=== PATIENT | male | born 1960 | race African-American/Black ===

== ENCOUNTER 2020-01-24 15:51 | Inpatient (IN) | payer OTHER ==
[~2020-01-24] VITALS: Ht 180.3 cm; Wt 90.0 kg
--- NOTE | 2020-01-24 15:55 | NUR ---
PATIENT TO ROOM VIA WHEELCHAIR UNDER GUARD AND PHYSICIAN NOTIFIED OF PATIENT STATUS
--- NOTE | 2020-01-24 16:44 | NUR ---
EKG COMPLETED ABG DONE AND O2 APPLIED LAB AND BC OBTAINED, PT TOLERATED WELL ISOLATION PRECAUTIONS IN PLACE, GUARDS AT BEDSIDE WILL CONTINUE TO MONITOR.
[2020-01-24] MEDS ORDERED: TRIGLIDE160 MG PO (16:46)
[2020-01-24] MEDS ORDERED: OMEPRAZOLE DR20 MG PO (16:47)
[2020-01-24] MEDS ORDERED: ZESTRIL10 M1 PO (16:48)
[2020-01-24] MEDS ORDERED: FUROSEMIDE20 MG PO (16:48)
[2020-01-24] MEDS ORDERED: TAMSULOSIN HCL0.4 MG PO (16:49)
[2020-01-24] MEDS ORDERED: POT CHLORIDE10 ME5 PO (16:49)
[2020-01-24] MEDS ORDERED: VENTOLIN H108 MCG/AC IN (16:50)
[2020-01-24] MEDS ORDERED: ALBUTEROL SUL0.083 % IN (16:51)
--- NOTE | 2020-01-24 16:52 | NUR ---
RADIOLOGY AT BEDSIDE, GABBY ASKED THIS NURSE TO NOTIFY MD THAT IV MEDICATIONS CAN BE PROVIDED FOR PATIENT ALEE ZENDEJAS, RELAYED MESSAGE TO .
[2020-01-24 17:08] LABS: HEMATOCRIT 32.3 % (39.0-50.0); HEMOGLOBIN 10.7 g/dl (14.0-18.0); IMMATURE GRANULOCYTES 0.6 % (0.0-5.0); MEAN CELL VOLUME 82.8 fL CALC (80.0-100.0); MEAN CORPUSCULAR HGB 27.4 pG CALC (26.0-32.0); MEAN CORPUSCULAR HGB CONC 33.1 g/dL CAL (32.0-36.0); NEUT# 5.47 thou/uL (1.82-7.42); RED BLOOD COUNT 3.9 mill/uL (4.70-6.10); RED CELL DISTRI WIDTH 15.2 % (11.5-15.5)
[2020-01-24 17:11] LABS: D-DIMER 2.39 mg/L (0.19-0.60)
[2020-01-24 17:15] LABS: ACT PARTIAL THROMBO TIME 28.6 SECONDS (20.0-32.5); INTERNATIONAL NORMALIZED RATIO 1.1 RATIO (0.7-1.3); PROTHROMBIN TIME 10.7 SECONDS (9.0-12.5)
[2020-01-24 17:16] LABS: ALBUMIN 3.9 g/dL (3.2-5.0); ALKALINE PHOSPHATASE 56 u/l (38-126); ANION GAP 13 (6-22 (CALC)); BILIRUBIN, TOTAL 0.6 mg/dL (0.0-1.4); BUN 29 mg/dL (9-20); BUN/CREATININE RATIO 13 (12-20 (CALC)); C-REACTIVE PROTEIN 7.2 mg/dL (0-0.9); CARBON DIOXIDE 23 mmol/l (22-30); CHLORIDE 102 mmol/l (95-108); CREATININE 2.2 mg/dL (0.7-1.3); GFR 31 ML/MIN (>=60 (CALC)); GFR FOR AFR.AMER. 37 ML/MIN (>=60 (CALC)); POTASSIUM 4.5 mmol/l (3.5-5.1); SGOT/AST 68 u/l (17-59); SODIUM 134 mmol/l (137-146); TOTAL PROTEIN 7.9 g/dL (6.3-8.2)
--- NOTE | 2020-01-24 17:32 | NUR ---
IVF INFUSING AND FLU AND COVID SWABS OBTAINED, GUARDS REMAINS AT BEDSIDE NO S/S OF DISTRESS OR DISCOMFORT AND WARM BLANKET PROVIDED FOR PT COMFORT
--- NOTE | 2020-01-24 17:40 | NUR ---
MD AWARE OF BUN AND CREATININ RESULTS
--- NOTE | 2020-01-24 18:36 | NUR ---
PT AND GUARDS AWARE OF PLANNED ADMISSION, DIETARY NOTIFIED OF DIET ORDER AND TRAY REQUESTED
--- NOTE | 2020-01-24 19:00 | NUR ---
OFFER PETRA GRAVES INFORMED OF CONVERSATION WITH PATIENTS SISTER. OFFICER STAR SPOKE WITH HIS CLIENT CUSTOMER MANAGER AND THAT THIS WOULD BE A LOW SECURITY RISK IF PATIENT WAS MOVED FROM THE ED TO A ROOM UPSTAIRS. PATIENT WOULD REMAIN WITH 2 GUARDS AT ALL TIME. INFORMED OFFICER STAR OF PATIENT ROOM # AND ALARMS ON [facility]. OFFICER STAR SAID THAT WOULD BE ACCEPTABLE. NURSING SPECIAL PROJECTS MANAGER AND MD INFORMED.
--- NOTE | 2020-01-24 19:40 | NUR ---
Admission Note Report Given to: NELSON TORO Transported by: Wheelchair X Stretcher Transported with: X Nurse Transporter X Patent IV X O2 X Manager Part Location: ICU X MS2
--- NOTE | 2020-01-24 19:40 | NUR ---
PATIENT ARRIVE TO FLOOR FROM ER, WITH 2 GUARDS. PT IS A&O X 3 AND COOPERATIVE PATIENT PLACED ON TELE AND 02 @ 2L VIA RI. PATIENT EDUCATED AND ORIENTED TO ROOM AND CALL LIGHT SYSTEM. ALL SAFETY MEASURES ARE IN PLACE. ADMISSION & ASSESSMENT COMPLETED. NO S/SX OF DISTRESS OR DISCOMFORT NOTED AT THIS TIME. # 20G PIV IN LFA- PATENT, CLEAN, DRY, AND DRESSING IS INTACT. WILL CONTINUE TO MONITOR.
[2020-01-25] VITALS: BP 98/56
--- NOTE | 2020-01-25 | NUR ---
PT IS RESTING IN BED, NO S/SX OF DISCOMFORT OR DISTRESSED NOTED AT THIS TIME, WILL CONTINUE TO MONITOR.
--- NOTE | 2020-01-25 04:00 | NUR ---
PT IS RESTING IN BED, NO S/SX OF DISCOMFORT OR DISTRESSED NOTED AT THIS TIME, WILL CONTINUE TO MONITOR.
[2020-01-25 04:05] VITALS: BP 100/61
[2020-01-25 06:55] LABS: HEMATOCRIT 32.2 % (39.0-50.0); HEMOGLOBIN 10.9 g/dl (14.0-18.0); IMMATURE GRANULOCYTES 0.6 % (0.0-5.0); MEAN CELL VOLUME 80.5 fL CALC (80.0-100.0); MEAN CORPUSCULAR HGB 27.3 pG CALC (26.0-32.0); MEAN CORPUSCULAR HGB CONC 33.9 g/dL CAL (32.0-36.0); NEUT# 3.89 thou/uL (1.82-7.42); RED CELL DISTRI WIDTH 15.5 % (11.5-15.5)
[2020-01-25 07:11] LABS: ALBUMIN 3.8 g/dL (3.2-5.0); BILIRUBIN, TOTAL 0.4 mg/dL (0.0-1.4); C-REACTIVE PROTEIN 8.7 mg/dL (0-0.9); CREATININE 1.5 mg/dL (0.7-1.3); TOTAL PROTEIN 7.5 g/dL (6.3-8.2)
[2020-01-25 08:01] VITALS: BP 128/72
--- NOTE | 2020-01-25 08:01 | NUR ---
RECIEVED REPORT FROM NELSON TORO. PT RESTING IN SEMI FOLWERS POSITION. INTRODUCED SELF TO PT AND DISCUSSED POC. PT IS A/O X3 AND FROM [facility], GUARDS X2 AT BEDSIDE. ASSESSMENT AND VITALS OBTAINED. RESPIRATIONS ARE EVEN AND UNLABORED WITH NO SIGNS OF DISTRESS NOTED. LUNG SOUNDS ARE CLEAR. HEART RHYTHM IS NORMAL WITH TELE IN PLACE, SR 83. RADIAL AND PEDAL PULSES ARE STRONG WITH NORMAL CAPILLARY REFILL. #20G IN LAC FLUSHED, SITE APPEARS HEALTHY AND PATENT. NON PRODUCTIVE COUGH PRESENT WHEN DEEP BREATHING. PT DENIES ANY PAIN AT THIS TIME. ALL SAFETY AND ISOLATION PRECAUTIONS ARE IN PLACE WITH CALL LLIGHT IN REACH. WILL CONTINUE TO MONITOR.
--- NOTE | 2020-01-25 10:54 | NUR ---
SPOKE TO [facility] ABOUT PT STATUS. NAME AND PROVIDED.
[2020-01-25 12:01] VITALS: BP 128/77
--- NOTE | 2020-01-25 12:02 | NUR ---
PT RESTING IN SEMI FOLWERS POSITION UPON ENTERING ROOM. RESPIRATIONS ARE EVEN AND UNLBAORED ON 2L NC. PT DENIES ANY PAIN OR DISCOMFORTS AT THIS TIME. PT REMAINS SHACKLED TO BED FROM LEFT ANKLE WITH 2 GUARDS AT BEDSIDE. ALL SFAETY PERCAUTIONS ARE IN PLACE WITH CALL LIGHT IN REACH.W ILL CONTINUE TO MONITOR
[2020-01-25 16:07] VITALS: BP 143/68
--- NOTE | 2020-01-25 16:58 | NUR ---
PT RESTING IN SEMI FOWLERS POSIITON. GUARDS X2 AT BEDSIDE. RIGHT LEG REMAINS SHACKLED TO BED. RESPIRATIONS ARE EVEN AND UNLABORED ON 2L NC. TELE MONITORING IN PLACE, SR 71. PT DENIES OF ANY PAIN OR DISCOMFORTS AT THIS TIME. ALL SAFETY AND ISOLATION PRECAUTIONS ARE IN PLACE WITH CALL LIGHT IN REACH. WILL CONTINUE TO MONITOR
[2020-01-25 19:05] VITALS: BP 91/46
--- NOTE | 2020-01-25 19:30 | NUR ---
RECIEVED REPORT FROM NELSON CHAKRABORTY. PT RESTING IN SEMI FOLWERS POSITION. PT IS AWAKE A&O X3, HE IS FROM [facility] WITH GUARDS X2 PRESENT AT BEDSIDE @ ALL TIMES. ASSESSMENT AND VITALS OBTAINED. RESPIRATIONS ARE EVEN AND UNLABORED WITH NO S/SX OF DISCOMFORT OR DISTRESS PRESENT AT THIS TIME. LUNG SOUNDS ARE CLEAR. NORMAL S1 & S2 HEART SOUND REGULAR RATE & RHYTHM W/ TELE IN PLACE- SHOWING SR 66. RADIAL AND PEDAL PULSES ARE STRONG WITH NORMAL CAPILLARY REFILL. #20G IN LAC- PATENT, CLEAN, DRY WITH DRESSING INTACT, AZITHROMYCIN CURRENT INFUSING, ROCEPHIN PENDING/ DELAYED D/T BEING SCHEDULED AT THE SAME TIME AND ARE INCOMPATIBLE. PT DENIES ANY PAIN OR DISCOMFORT AT THIS TIME. SAFETY & ISOLATION MEASURE ARE IN PLACE, CALL LIGHT WITHIN REACH. WILL CONTINUE TO MONITOR.
--- NOTE | 2020-01-26 | NUR ---
PT IS RESTING IN BED, NO S/SX OF DISCOMFORT OR DISTRESSED NOTED AT THIS TIME, WILL CONTINUE TO MONITOR.
[2020-01-26 00:40] VITALS: BP 100/62
[2020-01-26 03:40] VITALS: BP 108/65
--- NOTE | 2020-01-26 04:05 | NUR ---
PT IS RESTING IN BED, SLEEPING. RESP ARE REGULAR AND NON-LABORED. CURRENT HAVING A COUGHING SPASM, AND BRING UP SMALL AMOUNT OF SPUTUM, REQUESTING COUGH SYRUP, BUT NO ORDERS. GAVE PT INHALER AND ENCOURAGED HIM TO ELEVATE HOB MORE TO SEE IF IT HELPED, WHICH WAS AFFECTIVE. WILL CONTINUE TO MONITOR.
[2020-01-26 08:00] VITALS: BP 130/67
--- NOTE | 2020-01-26 08:00 | NUR ---
RECIEVED REPORT FROM NELSON TORO. PT RESTING IN SEMI FOWLERS POSITION UPON ENTERING ROOM. INTRODUCED SELF TO PT AND DISCUSSED POC. PT IS A/O X3 AND FROM [facility]. TWO GUARDS PRESENT IN SIDE ROOM LOOKING THROUGH WINDOW. ASSESSMENT AND VITALS COMPLETED AT THIS TIME. RESPIRATIONS ARE EVEN AND UNLABORED ON 2L NC SATING 97%. OXYGEN REMOVED TO MONITOR ON ROOM AIR. O2 SAT DECREASED TO 91%. 2L NC REAPPLIED. HEART RHYTHM NORMAL WITH TELE IN PLACE. BOWEL SOUNDS ARE ACTIVE IN ALL QUADRANTS, LAST REPORTED BM 01/25/2020. RADIAL AND PEDAL PULSES ARE STRONG WITH NORMAL CAPILLARY REFILL. #20G IN LAC FLUSHED, SITE APPEARS HEALTHY AND PATENT. PT DENIES ANY PAIN. PT COMPLAINS OF DRY SKIN ON FEET. LOTION TO BE PROVIDED. PT DENIES ANY PAIN OR DISCOMFORTS AT THIS TIME. ALL SAFETY PERCAUTIONS ARE IN PLACE WITH CALL LIGHT IN REACH.ISOLATION PRECAUTIONS IN PLACE. WILL CONTINUE TO MONITOR
--- NOTE | 2020-01-26 09:41 | NUR ---
FLU VACCINE ADMINSTERED. PT TOLERATED WELL. EDUCATED PROVIDED
[2020-01-26 10:49] VITALS: BP 110/67
--- NOTE | 2020-01-26 11:09 | NUR ---
DR SAENZ AT BEDSIDE DISCUSSING POC.
--- NOTE | 2020-01-26 12:00 | NUR ---
PT SLEEPING IN SEMI FOWLERS POSITION. RESPIRATIONS ARE EVEN AND UNLABORED ON 2L NC. NO SIGNS OF ANY DISTRESS. ALL SAFETY PRECAUTIONS ARE IN PLACE WITH CALL LIGHT IN REACH. WILL CONTINUE TO MONITOR
--- NOTE | 2020-01-26 15:40 | NUR ---
MYCELEX APPLIED TO PT FEET. PT TOELRATED WELL. RESPIRATIONS ARE EVEN AND UNLABORED ON 2L NC. PT DENIES ANY PAIN. ALL SAFETY PRECAUTIONS REMIANS IN PLACE WITH CALL LIGHT IN REACH. GUARDS IN SIDE ROOM WATCHING FROM WINDOW. RIGHT FOOT SHACKLED TO BED. WILL CONTINUE TO MONITOR
[2020-01-26 16:00] VITALS: BP 106/63
--- NOTE | 2020-01-26 18:48 | NUR ---
PT COMPAINS OF SPUTUM WITH BLOOD. SPECIMIN BOTTLE GIVEN TO PT. INSTRUCTED TO SPIT IN SPUTUM CUP AND NOTFY NURSE. PT VERBALIZED UNDERSTANDING
[2020-01-26 20:00] VITALS: BP 103/63
--- NOTE | 2020-01-26 20:02 | NUR ---
PHYSICAL ASSESMENT COMPLETE. PT CURRENTLY DENIES PAIN OR DISCOMFORT. SCHEDULED MEDICATIONS AND PRN MEDICATION ADMINISTERED, SEE E-MAR. PT DENIES ANY NEEDS AT THIS TIME. PLAN OF CARE REVIEWED, PT DENIES QUESTIONS, VERBALIZES UNDERSTANDING. PT FROM [facility]. GUARD PRESENT IN OUTER RROM OBSERVING THROUGH GLASS DOOR. PT SHACKLED TO THE BED. GOOD CIRCULATION. ITEMS WITHIN REACH, BED LOCKED IN LOW POSITION W/ BEDRAILS UP X2. CALL LOPEZ WITHIN REACH, AGREES TO CALL PRN.
--- NOTE | 2020-01-27 01:58 | NUR ---
PT LAYING IN BED WITH EYES CLOSED, APPEARS TO BE SLEEPING, APPEARS COMFORTABLE AND IN NO DISTRESS. RESPIRATIONS REGULAR AND UNLABORED. PT IS FROM [facility] AND THERE ARE 2 GUARDS PRESENT. PT IS SHACKLED TO THE BED. CIRCULATION IS GOOD. ITEMS REMAIN WITHIN REACH, CALL LOPEZ REMAINS WITHIN REACH. BED REMAINS LOCKED AND IN LOW POSITION WITH BEDRAILS UP X2. WILL CONTINUE TO MONITOR.
[2020-01-27 04:00] VITALS: BP 101/61
--- NOTE | 2020-01-27 04:02 | NUR ---
PT RESTING IN BED, NO SIGNS OF DISTRESS NOTED, RESP EVEN AND UNLABORED. PT VOICES NO NEEDS OR COMPLAINTS AT THIS TIME. CALL LIGHT IN REACH,CONTINUE TO MONITOR.
[2020-01-27 06:10] LABS: HEMATOCRIT 27.5 % (39.0-50.0); HEMOGLOBIN 9.4 g/dl (14.0-18.0); IMMATURE GRANULOCYTES 1.3 % (0.0-5.0); MEAN CELL VOLUME 81.1 fL CALC (80.0-100.0); MEAN CORPUSCULAR HGB 27.7 pG CALC (26.0-32.0); MEAN CORPUSCULAR HGB CONC 34.2 g/dL CAL (32.0-36.0); NEUT# 3.33 thou/uL (1.82-7.42); RED BLOOD COUNT 3.39 mill/uL (4.70-6.10); RED CELL DISTRI WIDTH 15.6 % (11.5-15.5)
[2020-01-27 06:22] LABS: ALBUMIN 3.5 g/dL (3.2-5.0); ALKALINE PHOSPHATASE 56 u/l (38-126); ANION GAP 12 (6-22 (CALC)); BILIRUBIN, TOTAL 0.5 mg/dL (0.0-1.4); BUN 27 mg/dL (9-20); BUN/CREATININE RATIO 20 (12-20 (CALC)); C-REACTIVE PROTEIN 6.7 mg/dL (0-0.9); CARBON DIOXIDE 27 mmol/l (22-30); CHLORIDE 103 mmol/l (95-108); CREATININE 1.3 mg/dL (0.7-1.3); GFR 57 ML/MIN (>=60 (CALC)); GFR FOR AFR.AMER. > 60 ML/MIN (>=60 (CALC)); POTASSIUM 4.5 mmol/l (3.5-5.1); SGOT/AST 47 u/l (17-59); SODIUM 137 mmol/l (137-146)
[2020-01-27 08:08] VITALS: BP 130/82
--- NOTE | 2020-01-27 08:08 | NUR ---
PATIENT IN BED AT THIS TIME. DENIES ANY NEEDS PATIENT STATES PAIN IS A 0 OUT OF PAIN SCALE OF 0-10. VALENCIA Trevino LOWER LEG SHACKLED AT THIS TIME. [facility] SITTING OUTSIDE OF ROOM. [facility]OL[facility]. O2 ON AT 2 LITERS SIDERAILS UP CALL LIGHT NEAR.
--- NOTE | 2020-01-27 08:10 | NUR ---
AT BEDSIDE DISCUSSING POC.
--- NOTE | 2020-01-27 12:20 | NUR ---
PATIENT IN BED AT THIS TIME WATCHING TV DENIES ANY NEEDS AND STATED "I HAD A SMALL BM TODAY. ALL SAFETY MEASURES IN PLACE CALL LIGHT NEAR.
[2020-01-27 15:25] VITALS: BP 109/70
--- NOTE | 2020-01-27 16:07 | NUR ---
PATIENT IN BED DENIES ANY NEEDS AT THIS TIME ALL SAFETY MEASURES IN PLACE. [employer] OFFICER SITTING OUTSIDE ROOM, INMATE SHACKLED (R) NO SIGN OF INJURY. CALL LIGHT IN REACH. SIDERAILS UP X 2
--- NOTE | 2020-01-27 19:45 | NUR ---
PT MEDICATED ORDERS PROVIDE AND ASSESSMENT COMPLETED AT THIS TIME. PT SHACKLED TO BED BY 1X ANKLE. LUNGS CLEAR, NO SOB AT THIS TIME. OXYGEN SAT 97% ON 2LNC.
[2020-01-27 20:00] VITALS: BP 102/65
--- NOTE | 2020-01-28 02:25 | NUR ---
Terrance x1 is sitting in anti room, pt sleeping w/out distress noted. call light at side. Terrance followed me into room as I checked on pt. He did not appear to awake to our entering room.
[2020-01-28 04:35] VITALS: BP 106/59
[2020-01-28 05:59] LABS: BASO% 0 % (0-3); EOS% 0 % (0-8); HEMATOCRIT 30.7 % (39.0-50.0); HEMOGLOBIN 10.1 g/dl (14.0-18.0); IMMATURE GRANULOCYTES 1.3 % (0.0-5.0); LYMPH% 24 % (15-41); MEAN CELL VOLUME 84.3 fL CALC (80.0-100.0); MEAN CORPUSCULAR HGB 27.7 pG CALC (26.0-32.0); MEAN CORPUSCULAR HGB CONC 32.9 g/dL CAL (32.0-36.0); MONO% 8 % (2-13); NEUT# 4.64 thou/uL (1.82-7.42); NEUT% 67 % (42-76); RED BLOOD COUNT 3.64 mill/uL (4.70-6.10); RED CELL DISTRI WIDTH 15.1 % (11.5-15.5)
[2020-01-28 06:00] LABS: ALBUMIN 3.5 g/dL (3.2-5.0); ALKALINE PHOSPHATASE 61 u/l (38-126); ANION GAP 10 (6-22 (CALC)); BILIRUBIN, TOTAL 0.5 mg/dL (0.0-1.4); BUN 24 mg/dL (9-20); BUN/CREATININE RATIO 17 (12-20 (CALC)); CARBON DIOXIDE 30 mmol/l (22-30); CHLORIDE 102 mmol/l (95-108); CREATININE 1.4 mg/dL (0.7-1.3); GFR 52 ML/MIN (>=60 (CALC)); GFR FOR AFR.AMER. > 60 ML/MIN (>=60 (CALC)); POTASSIUM 4.6 mmol/l (3.5-5.1); SGOT/AST 43 u/l (17-59); SODIUM 137 mmol/l (137-146); TOTAL PROTEIN 7.2 g/dL (6.3-8.2)
--- NOTE | 2020-01-28 06:05 | NUR ---
PT AWAKE, NO S/O DISTRESS NOTED. DENIES ANY NEEDS AT THIS TIME. GUARD X1 ENTERED ROOM WITH ME. CALL LIGHT AT SIDE, LIGHTS OFF AND TV ON.
[2020-01-28 06:07] LABS: PLATELET COUNT 405 thou/uL (130-400)
[2020-01-28 08:00] VITALS: BP 113/64
--- NOTE | 2020-01-28 08:00 | NUR ---
PATIENT IN BED RIGHT ANKLE SHACKLED LOOSELY AT THIS TIME. CALL LIGHT WITHIN REACH SIDERAILS UP X 2. O2 ON AT 2 LITERS DENIES ANY PAIN AT THIS TIME. OFFICE POSITIONED OUTSIDE OF ROOM.
--- NOTE | 2020-01-28 12:00 | NUR ---
PATIENT UP IN CHAIR RIGHT LEG SHACKLED GAURD OUTSIDE ROOM IN VISUAL CONTACT. PATIENT DENIES ANY NEEDS AT THIS TIME CALL WITHIN REACH.
--- NOTE | 2020-01-28 12:30 | NUR ---
PER PHYSICIAN ORDER DECREASED PATIENT O2 DOWN TO 1 LITER AT THIS TIME. PATIENT EDUCATED TO CALL NURSE IF SHORTNESS OF BREATH OR ANY OTHER ISSUES ARISE. PATIENT VERBALIZED UNDERSTANDING WHEN TO CALL NURSE.
[2020-01-28 16:15] VITALS: BP 113/63
--- NOTE | 2020-01-28 16:15 | NUR ---
PATIENT IN BED AT THIS TIME SPO2 TAKEN WITHOUT O2 ON AND WAS 98% ON R/A. PATIENT ADVISED TO LEAVE O2 OFF AT THIS TIME AND IF HE FEELS HE NEEDS IT TO CALL NURSE AND PLACE BACK ON. PATIENT STATED "I FEEL FINE". PATIENT REMAINS SCACKLED TO BED ON RIGHT ANKLE (LOOSE). PATIENT DENIES ALL OTHER NEEDS AT THIS TIME.
--- NOTE | 2020-01-28 17:00 | NUR ---
PATIENT SETTING UP IN CHAIR SPO2 CHECKED AT THIS TIME AND RESULTS: 93% ON ROOM AIR. PATIETN STATES HE HAS NO SHORTNESS OF BREATH AT THIS TIME.
[2020-01-28 19:00] VITALS: BP 106/68
--- NOTE | 2020-01-28 20:00 | NUR ---
PATIENT SITTING UP IN RECLINER AT THIS TIME WITH OFFICER AT BEDSIDE. PATIENT IS ALERT AND ORIENTEDX3. NO COMPLAINTS AT THIS TIME. PATIENT ON ISOLATION PRECAUTIONS IN NEG PRESSURE ROOM FOR POSITIVE COVID. O2 SAT ON RA-94-95%. LUNGS ARE CLEAR. PATIENT VOIDING IN URINE BECKY URINE. PATIENT BACK TO BED-SHACKLED TO THE BED PER CHRISTOPHER. JAZMINE FEET ARE DRY AND SCALEY-CREAM APPLIED ORDERED. SAFETY PRECAUTIONS REINFORCED. CALL LIGHT IN REACH. WILL CONT TO MONITOR.
--- NOTE | 2020-01-29 | NUR ---
PATIENT RESTING IN BED WITH EYES CLOSED. RESPS ARE EVEN AND UNLABORED. CHRISTOPHER REMAINS IN ANTEROOM OF ISOLATION/NEG PRESSURE ROOM. PATIENT SHAKELED TO THE BED WITH HIS LEFT ANKLE. CALL LIGHT IN REACH. WILL CONT TO MONITOR.
[2020-01-29 04:00] VITALS: BP 106/64
--- NOTE | 2020-01-29 04:00 | NUR ---
PATIENT RESTING AT THIS TIME-APPEARS SLEEPING WITH EYES CLOSED. RESPS ARE EVEN AND UNLABORED. CHRISTOPHER REMAINS IN ANTEROOM OF ISOLATION/NEG PRESSURE ROOM. CALL LIGHT IN REACH. WILL CONT TO MONITOR.
[2020-01-29 05:59] LABS: HEMATOCRIT 30.1 % (39.0-50.0); HEMOGLOBIN 9.8 g/dl (14.0-18.0); IMMATURE GRANULOCYTES 1.6 % (0.0-5.0); MEAN CELL VOLUME 83.4 fL CALC (80.0-100.0); MEAN CORPUSCULAR HGB 27.1 pG CALC (26.0-32.0); MEAN CORPUSCULAR HGB CONC 32.6 g/dL CAL (32.0-36.0); NEUT# 5.09 thou/uL (1.82-7.42); RED BLOOD COUNT 3.61 mill/uL (4.70-6.10)
[2020-01-29 06:03] LABS: ALBUMIN 3.3 g/dL (3.2-5.0); ALKALINE PHOSPHATASE 55 u/l (38-126); ANION GAP 8 (6-22 (CALC)); BILIRUBIN, TOTAL 0.5 mg/dL (0.0-1.4); BUN 24 mg/dL (9-20); BUN/CREATININE RATIO 21 (12-20 (CALC)); CARBON DIOXIDE 29 mmol/l (22-30); CHLORIDE 105 mmol/l (95-108); CREATININE 1.1 mg/dL (0.7-1.3); GFR > 60 ML/MIN (>=60 (CALC)); GFR FOR AFR.AMER. > 60 ML/MIN (>=60 (CALC)); POTASSIUM 4.5 mmol/l (3.5-5.1); SGOT/AST 37 u/l (17-59); SODIUM 137 mmol/l (137-146); TOTAL PROTEIN 6.9 g/dL (6.3-8.2)
--- NOTE | 2020-01-29 07:05 | NUR ---
REPORT RECEIVED FROM JONO OGDEN;PT RESTING IN SEMI FOWLERS POSITION WITH [employer] GUARD NEAR BEDSIDE;RESPIRATIONS EVEN AND UNLABORED ON RA;NO S/S OF DISTRESS NOTED;ALL SAFETY PRECAUTIONS IN PLACE WITH BED IN THE LOWEST POSITION AND CALL LIGHT IN REACH;WILL CONTINUE TO MONITOR
[2020-01-29 07:18] VITALS: BP 112/66
--- NOTE | 2020-01-29 09:00 | NUR ---
PT RESTING IN RECLINER WITH GUARD NEAR BEDSIDE AT THIS TIME AND BLE SHACKLED;PT DENIES ANY CURRENT PAIN OR DISCOMFORTS,PAIN SCALE AND REPORTING EDUCATED;RESPIRATIONS EVEN AND UNLABORED ON RA,CLEAR LUNG SOUNDS NOTED;ABDOMEN SOFT ON PALPATION AND ACTIVE IN ALL 4 QUADRANTS;STRONG PEDAL PULSES;SKIN INTACT;#20G TO LAC FLUSHED AND PATENT,SITE APPEARS HEALTHY;PT DENIES ANY ADDITIONAL NEEDS AT THIS TIME AND IS ENCOURAGED TO CALL FOR ASSISTANCE IF NEEDED;FALL PRECAUTIONS IN PLACE WITH CALL LIGHT IN REACH;WILL CONTINUE TO MONITOR
[2020-01-29] MEDS ORDERED: ZITHROMAX500 MG PO (11:01)
[2020-01-29] MEDS ORDERED: DEXAMETHASON6 MG PO (11:01)
--- NOTE | 2020-01-29 11:50 | NUR ---
ALL DISCHARGE INSTRUCTIONS PROVIDED AT THIS TIME;PT EDUCATED ON RX FOR DECADRON TO BE GIVEN FOR 4 MORE DAYS,ABX COURSE HAS BEEN COMPLETED;MONITOR O2 SATS,INHALER NEEDED FOR SOB AND TO PRONE AND AMBULATE OFTEN;PT VERBALIZES UNDERSTANDING;IV SITE REMOVED WITH CATHETER INTACT;RX AND D/C INSTRUCTIONS PROVIDED TO GUARD FOR TRANSPORT BACK TO [facility] TO TRANSPORT PT TO FACILITY;WILL CONTINUE TO MONITOR
--- NOTE | 2020-01-29 12:30 | NUR ---
Discharge instructions given. Patient verbalizes understanding of same. [facility]. All belongings sent with pt. PT LEFT AT THIS TIME VIA WHEELCHAIR FOR D/C BACK TO [facility]OM[facility]AN[facility] BY ANNABEL CABALLERO AND X2 GUARDS. ALL BELONGINGS LEFT WITH PT AND D/C INSTRUCTIONS AND RX FOR DECADRON LEFT WITH GUARDS AT THIS TIME.
== END 2020-01-29 12:31 | disposition designated cancer center or children's hospital (05) | DRG 177 ==
LOC: ED 15:51 → ED-I 18:09 → ED 18:24 → MS2 18:25
PROVIDERS: Nurse Practitioner Family; ADMIT Internal Medicine; ATTEND Internal Medicine
DX: U07.1 COVID-19 (principal); J12.89 Other viral pneumonia; J96.00 Acute respiratory failure, unspecified whether with hypoxia or hypercapnia; R07.89 Other chest pain; N28.9 Disorder of kidney and ureter, unspecified; B35.3 Tinea pedis; D64.9 Anemia, unspecified; Z23 Encounter for immunization
CPT/HCPCS: J1650

== ENCOUNTER 2022-10-07 10:51 | Emergency (ER) | payer OTHER ==
[~2022-10-07] VITALS: Ht 180.3 cm; Wt 86.4 kg
[~2022-10-07 10:51] MED LIST: ALBUTEROL SUL0.083 % IN; DEXAMETHASON6 MG PO; FUROSEMIDE20 MG PO; OMEPRAZOLE DR20 MG PO; POT CHLORIDE10 ME5 PO; TAMSULOSIN HCL0.4 MG PO; TRIGLIDE160 MG PO; VENTOLIN H108 MCG/AC IN; ZESTRIL10 M1 PO; ZITHROMAX500 MG PO
[2022-10-07 11:00] VITALS: BP 140/82
[2022-10-07] MEDS ORDERED: AMOX/K CLAV875 M1 PO (12:45)
[2022-10-07 13:59] VITALS: BP 140/82
== END 2022-10-07 14:05 | disposition home or self-care (01) | DRG 999 ==
LOC: ED 10:51
PROC: 0HQ1XZZ Repair Face Skin, External Approach (ICD-10-PCS; principal; 2022-10-07)
DX: S01.81XA Laceration without foreign body of other part of head, initial encounter (principal); S22.32XA Fracture of one rib, left side, initial encounter for closed fracture; M25.532 Pain in left wrist; Y04.0XXA Assault by unarmed brawl or fight, initial encounter; Y92.149 Unspecified place in prison as the place of occurrence of the external cause